=== PATIENT | male | born 1995 | race Caucasian/White ===

== ENCOUNTER 2018-01-02 13:44 | Emergency (ER) | payer BC, SELFPAY ==
[2018-01-02 13:59] VITALS: BP 140/70; PULSE 70; RESP 16; TEMP 36.8; O2SAT 96; BMI 23.5
--- NOTE | 2018-01-02 14:14 | HMH.EDUTC ---
[facility] [place] Disposition Clinical Impression: Dental abscess Disposition: Home, Self-Care Condition on Discharge: Good Instructions: Tooth Abscess Additional Instructions: Follow up with dentist as scheduled Take medication as prescribed Follow up with family doctor in 12-48 hours if no improvement or worsening of symptoms REturn if needed Straight to ER if any medical emergencies or worsening of swelling Prescriptions: Fluticasone Propionate [Flonase 50mcg nasal spray 16gm] 2 spr NS DAILY #1 bottle Ibuprofen [Ibuprofen 600mg Tab] 600 mg PO Q6H PRN #20 tab PRN Reason: Moderate Pain Penicillin V Potassium 500 mg PO Q6H #40 tab Referrals: Adis Huitron MD [Primary Care Provider] - Forms: Work/School Release Time of Disposition: 14:29 Medical Decision Making - Medical Records Medical records reviewed: Yes: I reviewed the patient's medical records. - Edwin Inquiry Pt receiving controlled substance: No Edwin was queried for this patient: No Vital Signs: 01/02/18 13:59 Temperature 98.3 F Temperature Source Temporal Artery Scan Pulse Rate [Right] 70 Respiratory Rate 16 Blood Pressure [Right Arm] 140/70 Blood Pressure Mean [Right Arm] 93 Blood Pressure Source [Right Arm] Automatic Cuff Blood Pressure Position [Right Arm] Sitting 02 Sat by Pulse Oximetry 96 Oxygen Delivery Method Room Air - Lab Data Lab results reviewed: Yes: I reviewed the patient's lab results. [facility] [place] HPI - General Stated complaint: fever glands swollen Time Seen by Provider: 01/02/18 14:15 Mode of Arrival: Ambulatory Source of Information: Patient Limitations: No Limitations Description of Symptoms (Recalled from Triage Doc. by RN): DENTAL PAIN, BODY ACHES HEENT Symptoms (Recalled from RN notes): Yes Resp Symptoms (Recalled from RN notes): No Skin Symptoms (Recalled from RN notes): No MS Symptoms (Recalled from RN notes): No Functional Status (Recalled from RN notes): N - History of Present Illness Provider Complaint: Patient states that he has been achy all over, complaining of sinus drainage Also state that he thinks he may have a dental infection or abcess tooth State that he has been having pain and swelling on left lower jaw area in his back tooth State that he noticed that his jaw looked swollen and he has been having pain - Related Data Previous Rx's Medication Instructions Recorded Fluticasone Propionate [Flonase 2 spr NS DAILY #1 bottle 01/02/18 50mcg nasal spray 16gm] Ibuprofen [Ibuprofen 600mg Tab] 600 mg PO Q6H PRN #20 tab 01/02/18 Penicillin V Potassium 500 mg PO Q6H #40 tab 01/02/18 Allergies Allergy/AdvReac Type Severity Reaction Status Date / Time No Known Allergies Allergy Verified 01/02/18 14:02 - Worker's Comp Is this a Worker's Comp case?: No H History I have reviewed the patient's past medical history: Yes - Social History Smoking Status: Current every day smoker Tobacco Type: smokeless tobacco Alcohol Intake: never - Psychiatric History Expresses thoughts of harming self/others: None Suicide Plan Description: No Plan ROS Obtained: Yes All systems reviewed & no additional complaints - Constitutional Constitutional: Reports body ache - ENT Ears, Nose, Mouth, and Throat: Reports dental pain, Reports nasal congestion, Reports sore throat Physical Exam - General General appearance: alert, in no apparent distress - Expanded ENT Exam Nose exam: Present: sinus tenderness Open Mouth Image: 1 - [place] tooth trying to come in, not enough room gums appear red, swollen inflammed - Respiratory Respiratory exam: Present: normal lung sounds bilaterally. Absent: respiratory distress - Cardiovascular Cardiovascular exam: Present: regular rate, normal rhythm. Absent: JVD - Abdominal Exam Abdominal exam: Present: soft, normal bowel sounds. Absent: distention, tenderness, guarding - Neurological Exam
--- NOTE | 2018-01-02 14:17 | ED_ITS ---
[facility] [place] Disposition Clinical Impression: Dental abscess Disposition: Home, Self-Care Condition on Discharge: Good Instructions: Tooth Abscess Additional Instructions: Follow up with dentist as scheduled Take medication as prescribed Follow up with family doctor in 12-48 hours if no improvement or worsening of symptoms REturn if needed Straight to ER if any medical emergencies or worsening of swelling Prescriptions: Fluticasone Propionate [Flonase 50mcg nasal spray 16gm] 2 spr NS DAILY #1 bottle Ibuprofen [Ibuprofen 600mg Tab] 600 mg PO Q6H PRN #20 tab PRN Reason: Moderate Pain Penicillin V Potassium 500 mg PO Q6H #40 tab Referrals: Adis Huitron MD [Primary Care Provider] - Forms: Work/School Release Time of Disposition: 14:29 Medical Decision Making - Medical Records Medical records reviewed: Yes: I reviewed the patient's medical records. - Edwin Inquiry Pt receiving controlled substance: No Edwin was queried for this patient: No Vital Signs: 01/02/18 13:59 Temperature 98.3 F Temperature Source Temporal Artery Scan Pulse Rate [Right] 70 Respiratory Rate 16 Blood Pressure [Right Arm] 140/70 Blood Pressure Mean [Right Arm] 93 Blood Pressure Source [Right Arm] Automatic Cuff Blood Pressure Position [Right Arm] Sitting 02 Sat by Pulse Oximetry 96 Oxygen Delivery Method Room Air - Lab Data Lab results reviewed: Yes: I reviewed the patient's lab results. [facility] [place] HPI - General Stated complaint: fever glands swollen Time Seen by Provider: 01/02/18 14:15 Mode of Arrival: Ambulatory Source of Information: Patient Limitations: No Limitations Description of Symptoms (Recalled from Triage Doc. by RN): DENTAL PAIN, BODY ACHES HEENT Symptoms (Recalled from RN notes): Yes Resp Symptoms (Recalled from RN notes): No Skin Symptoms (Recalled from RN notes): No MS Symptoms (Recalled from RN notes): No Functional Status (Recalled from RN notes): N - History of Present Illness Provider Complaint: Patient states that he has been achy all over, complaining of sinus drainage Also state that he thinks he may have a dental infection or abcess tooth State that he has been having pain and swelling on left lower jaw area in his back tooth State that he noticed that his jaw looked swollen and he has been having pain - Related Data Previous Rx's Medication Instructions Recorded Fluticasone Propionate [Flonase 2 spr NS DAILY #1 bottle 01/02/18 50mcg nasal spray 16gm] Ibuprofen [Ibuprofen 600mg Tab] 600 mg PO Q6H PRN #20 tab 01/02/18 Penicillin V Potassium 500 mg PO Q6H #40 tab 01/02/18 Allergies Allergy/AdvReac Type Severity Reaction Status Date / Time No Known Allergies Allergy Verified 01/02/18 14:02 - Worker's Comp Is this a Worker's Comp case?: No H History I have reviewed the patient's past medical history: Yes - Social History Smoking Status: Current every day smoker Tobacco Type: smokeless tobacco Alcohol Intake: never - Psychiatric History Expresses thoughts of harming self/others: None Suicide Plan Description: No Plan ROS Obtained: Yes All systems reviewed & no additional complaints - Constitutional Constitutional: Reports body ache - ENT Ears, Nose, Mouth, and Throat: Reports dental pain, Reports nasal congestion, Reports sore throat Physical Exam
[2018-01-02 14:33] VITALS: BP 140/70; PULSE 70; RESP 16; TEMP 36.8
[2018-01-02 14:38] LABS: UTC Influenza A Antigen Negative (Negative); UTC Influenza B Antigen Negative (Negative)
== END 2018-01-02 14:43 | disposition home or self-care (01) ==
PROVIDERS: Emergency Provider Nurse Practitioner; Family Provider Internal Medicine Adolescent Medicine; PCP Internal Medicine Adolescent Medicine
DX: K04.7 Periapical abscess without sinus (principal); F17.290 Nicotine dependence, other tobacco product, uncomplicated
CPT/HCPCS: 87804; 99201

== ENCOUNTER → 2018-11-16 12:58 | Outpatient (CLI) | payer BC, SELFPAY ==
[2018-11-16 14:32] LABS: Basophils % 0.3 % (0.1-2.0); Eosinophils # 0.1 K/mm3 (0.0-0.4); Eosinophils % 1.6 % (0.1-12.0); Hematocrit 50.8 % (42.0-52.0); Lymphocytes # 1.5 K/mm3 (0.7-4.5); Mean Corpuscular HGB Conc 31.4 g/dL (31.8-35.4); Mean Corpuscular Hemoglobin 28.7 pg (27.0-31.2); Mean Corpuscular Volume 91.2 fl (80-94); Mean Platelet Volume 7.3 fl (7.4-10.4); Monocytes # 0.3 K/mm3 (0.1-1.0); Monocytes % 6.4 % (1.7-9.3); Neutrophils # 2.8 K/mm3 (1.8-7.8); Neutrophils % 59.7 % (37.0-80.0); Platelet Count 288 K/mm3 (142-424); Red Blood Count 5.57 M/mm3 (4.60-6.20); Red Cell Distribution Width 12.6 % (11.5-17.5); White Blood Count 4.7 K/mm3 (4.8-10.8)
[2018-11-16 14:56] LABS: Hemoglobin A1C 5.4 % (0.0-7.0)
[2018-11-16 15:32] LABS: Alanine Aminotransferase 48 U/L (12-78); Albumin Level 4.5 gm/dL (3.4-5.0); Albumin/Globulin Ratio 1.4 (1.1-1.8); Alkaline Phosphatase 71 U/L (46-116); Anion Gap 13.5 mEq/L (5-15); Aspartate Amino Transferase 23 U/L (15-37); Bilirubin,Total 0.6 mg/dL (0.2-1.0); Blood Urea Nitrogen 13 mg/dL (7-18); Calcium 10.1 mg/dL (8.5-10.1); Carbon Dioxide 29 mmol/L (21.0-32.0); Chloride 102 mmol/L (98-107); Cholesterol 170 mg/dL (140-200); Creatinine,Serum 0.98 mg/dL (0.70-1.30); Estimated Glomerular Filt Rate 94 ml/min (>60); GFR (African American) 114 ML/MIN (>60); Globulin 3.3 gm/dl (1.3-3.2); Glucose 103 mg/dL (74-106); HDL Cholesterol 43 mg/dL (27-67); LDL Cholesterol 110 mg/dL (0-130); Potassium 4.5 mmoL/L (3.5-5.1); Sodium 140 mmol/L (136-145); Thyroid Stimulating Hormone 3.85 uIU/ml (0.358-3.740); Total Protein,Serum 7.8 gm/dL (6.4-8.2); Triglycerides 85 mg/dL (30-200); VLDL Cholesterol 17 mg/dL (0-40)
[2018-11-18 07:05] LABS: Vitamin B12 609 pg/mL (232-1245)
== END ==
PROVIDERS: PCP Internal Medicine Adolescent Medicine; Visit Provider Internal Medicine Adolescent Medicine
DX: R55 Syncope and collapse (principal); R53.83 Other fatigue; R53.81 Other malaise
CPT/HCPCS: 36415; 80053; 80061; 82607; 82652; 83036; 83735; 84443; 85025

== ENCOUNTER 2020-07-18 00:45 | Emergency (ER) | payer BC, SELFPAY ==
[2020-07-18 01:01] VITALS: BP 150/70; PULSE 92; RESP 16; TEMP 36.8; O2SAT 98; BMI 25.0
--- NOTE | 2020-07-18 01:04 | XR_ITS ---
PROCEDURE: XR ANKLE RT MIN 3V CLINICAL INDICATION: ROLLED ANKLE Posttraumatic pain and swelling COMPARISON: No exams were available for comparison FINDINGS: Soft tissue swelling is present along the lateral malleolar region. No obvious fracture or dislocation. An old full hyperdensity is present along the distal tibia laterally and may be due to a bone island. IMPRESSION: Soft tissue swelling otherwise negative Dictated by: Tobias Arroyo MD 07/18/2020 05:28 Tobias Arroyo MD in [place] 07/18/2020 05:28
--- NOTE | 2020-07-18 01:40 | HMH.EDLOEX ---
ED Disposition Clinical Impression: Ankle sprain and strain Disposition: Home, Self-Care Condition on Discharge: Good Instructions: Sprain Referrals: Adis Huitron MD [Primary Care Provider] - Nita Proctor DPM [Staff Physician] - - Critical Care Critical Care Time: No Attestation: On 07/18/20, the high probability of a clinically significant, sudden or life threatening deterioration of the following system(s) required my full and direct attention, intervention and personal management. The time I documented below is in addition to time spent performing reported procedures but includes the following listed in this critical care notation. Medical Decision Making - Medical Records Medical records reviewed: Yes: I reviewed the patient's medical records. - Edwin Inquiry Pt receiving controlled substance: No Vital Signs: 07/18/20 01:01 Temperature 98.2 F Temperature Source Oral Pulse Rate [Left Brachial] 92 H Respiratory Rate 16 Blood Pressure [Left Arm] 150/70 H Blood Pressure Mean [Left Arm] 96 Blood Pressure Source [Left Arm] Automatic Cuff Blood Pressure Position [Left Arm] Sitting 02 Sat by Pulse Oximetry 98 Oxygen Delivery Method Room Air Orders (Tests/Meds): ORDERS Category Date Time Status Ankle XR -Right minimum 3 Views [XR ankle RT min 3V] Exams 07/18/20 01:04 Taken Stat - Radiology Data #1 Image(s): Ankle Image Reviewed: Yes I reviewed the patient's radiology image Preliminary Findings: No Fracture Seen Lower Extremity Injury HPI - General Chief Complaint: Extremity Injury, Lower Stated Complaint: AO 07/17/20 21:00 injury right ankle Time Seen by Provider: 07/18/20 01:15 Mode of Arrival: Ambulatory Source of Information: Patient, Spouse, Medical Record Limitations: No Limitations Description of Symptoms (Recalled from ER Triage Doc. by RN): PATIENT REPORTS HE WAS TAKING OUT HIS TRASH AND MISSED A STEP WHEN STEPPING OFF HIS PORCH AND ROLLED HIS RIGHT ANKLE. - History of Present Illness HPI Narrative: acute rt ankle injury complaint: ankle injury Onset (ago): hour(s) Injury: Right: ankle Type of Injury: eversion Place: home Severity: moderate Context: walking Associated symptoms: snap/pop sensation, unable to bear weight Other symptoms: none - Related Data Previous Rx's Medication Instructions Recorded Azithromycin [Z-Ehsan 250mg Tab*] 250 mg PO UD DOSE PK #6 tab 08/22/19 predniSONE [Prednisone 5mg Tab 5 mg PO UD DOSE PK 6 Days #21 pack 08/22/19 Dose-Pack] Allergies Allergy/AdvReac Type Severity Reaction Status Date / Time No Known Allergies Allergy Verified 01/02/18 14:02 [facility] History - Hepatitis A Screen Drug use history?: No High risk sexual behaviors?: No History of sexually transmitted infection?: No Currently employed?: No Childcare worker?: No Do you have indoor plumbing?: Yes Do you have electricity?: Yes Attestation statement:: This patient has been screened for Hepatitis A risk factors. I have reviewed the patient's past medical history: Yes Fractures: Yes (COLLAR BONE) - Social History Smoking Status: Current every day smoker Tobacco Type: smokeless tobacco Alcohol Intake: never Occupational Status: other ROS Obtained: Yes All systems reviewed & no additional complaints - Constitutional Constitutional: Denies fever(s) - Eyes Eyes: Denies change in vision - ENT Ears, Nose, Mouth, and Throat: Denies sore throat - Cardiovascular Cardiovascular: Denies chest pain - Respiratory Respiratory: No cough - Gastrointestinal Gastrointestingal: Denies: abdominal pain - Genitourinary Male Genitourinary: Denies flank pain - Musculoskeletal Musculoskeletal: Reports as per HPI, Reports joint pain, Reports joint swelling, Reports limited range of motion - Integumentary/Breasts Skin/Breast: Denies rash - Neurologic Neurologic: Denies focal weakness, Denies seizure-like activity Physical Exam
[2020-07-18 01:53] VITALS: BP 127/91; PULSE 73; RESP 15; TEMP 36.6; O2SAT 99
== END 2020-07-18 01:55 | disposition home or self-care (01) ==
PROVIDERS: Emergency Provider Emergency Medicine; PCP Internal Medicine Adolescent Medicine
DX: S93.401A Sprain of unspecified ligament of right ankle, initial encounter (principal); W10.8XXA Fall (on) (from) other stairs and steps, initial encounter; Y92.019 Unspecified place in single-family (private) house as the place of occurrence of the external cause; F17.290 Nicotine dependence, other tobacco product, uncomplicated
CPT/HCPCS: 73610; 99282

== ENCOUNTER 2020-10-16 09:52 | Emergency (ER) | payer BC, SELFPAY ==
[2020-10-16 09:58] VITALS: BP 140/90; PULSE 77; RESP 17; TEMP 36.9; O2SAT 99; BMI 25.8
--- NOTE | 2020-10-16 10:01 | HMH.EDUTC ---
[facility] [place] Clinical Impression: Heartburn Pneumonia Qualifiers: Pneumonia type: due to unspecified organism Laterality: right Lung location: upper lobe of lung Qualified Code(s): J18.9 - Pneumonia, unspecified organism Disposition: Home, Self-Care Condition on Discharge: Good Instructions: DI for Pneumonia -- Adult Additional Instructions: Follow up with Dr Huitron if not improving You have been tested for COVID19. Please isolate yourself as if you are positive until test results received. Prescriptions: Famotidine/Ca Carb/Mag Hydrox [Pepcid Complete Tablet Chew] 1 each PO BID 10 Days #20 tab.chew [facility] predniSONE [Prednisone 20mg Tab] 20 mg PO BID 5 Days #10 tab Transmission Status: Pending to [facility] Azithromycin [Z-Ehsan 250mg Tab*] 250 mg PO UD DOSE PK #6 tab Transmission Status: Pending to [facility] Referrals: Adis Huitron MD [Primary Care Provider] - Time of Disposition: 11:00 Medical Decision Making - Edwin Inquiry Pt receiving controlled substance: No Vital Signs: 10/16/20 09:58 Temperature 98.4 F Temperature Source Oral Pulse Rate [Radial] 77 Respiratory Rate 17 Blood Pressure [Right Arm] 140/90 Blood Pressure Mean [Right Arm] 106 Blood Pressure Source [Right Arm] Automatic Cuff Blood Pressure Position [Right Arm] Sitting 02 Sat by Pulse Oximetry 99 Oxygen Delivery Method Room Air Orders (Tests/Meds): ORDERS Category Date Time Status Chest XR 2 view (NOT portable) [XR chest 2V] Stat Exams 10/16/20 10:10 Taken - Radiology Data #1 Image(s): Chest Image Reviewed: Yes I reviewed the patient's radiology image Preliminary Findings: Normal/NAD, No Infiltrates Seen - ECG Data Tracing #1 I reviewed this ECG and interpreted as documented below: NSR with sinus arrhythmia; no ST elevation ECG initial impression date: 10/16/20 ECG initial impression time: 10:52 Normal Sinus Rhythm: Yes [facility] [place] - General Stated complaint: upper respitory pain, achy, Time Seen by Provider: 10/16/20 10:01 Mode of Arrival: Ambulatory Source of Information: Patient Limitations: No Limitations Description of Symptoms (Recalled from Triage Doc. by RN): consistent heart burn since last night with body aches. HEENT Symptoms (Recalled from RN notes): Yes Resp Symptoms (Recalled from RN notes): No Skin Symptoms (Recalled from RN notes): No MS Symptoms (Recalled from RN notes): No Functional Status (Recalled from RN notes): wnl - History of Present Illness Provider Complaint: Patient woke up yesterday with heartburn, but states that is is worse than any heartburn he has had before. No relief with Tums, etc. Has some upper back pain, body aches. No fever. Cannot get comfortable. Chest is sore with movement, when he lays on it. Minimal cough. Denies ear pain, sore throat, headache. Has not had much appetite but denies loss of taste or smell. No vomiting or diarrhea. Onset (ago): day(s) (1) Location: chest Radiation: non-radiation Quality: burning Relieving factors: none Exacerbating factors: none Associated symptoms: malaise Treatments prior to arrival: other (Tums) - Related Data Previous Rx's Medication Instructions Recorded meloxicam 7.5 mg tablet 7.5 mg PO ONCE #30 tab 07/19/20 methylprednisolone 4 mg tablets in See Rx Instructions PO PER PKG DIR 07/19/20 a dose pack #21 tab Azithromycin [Z-Ehsan 250mg Tab*] 250 mg PO UD DOSE PK #6 tab 10/16/20 Famotidine/Ca Carb/Mag Hydrox 1 each PO BID 10 Days #20 tab.chew 10/16/20 [Pepcid Complete Tablet Chew] predniSONE [Prednisone 20mg 20 mg PO BID 5 Days #10 tab 10/16/20 Tab] Allergies Allergy/AdvReac Type Severity Reaction Status Date / Time No Known Allergies Allergy Verified 07/19/20 08:18 - Worker's Comp Is this a Worker's Comp case?: No H History - Hepatitis A Screen Drug use history?: No High risk sexual behaviors?:
--- NOTE | 2020-10-16 10:10 | XR_ITS ---
PROCEDURE: XR CHEST 2V Referring Doctor: Jarad Sylvia Patient Age:24Y CLINICAL HISTORY: crackles crackles at lung bases patient has body aches. Heartburn 2 days. Not feeling well. Nonsmoker COMPARISON: [facility] from 01/21/2017 FINDINGS: PA and lateral chest performed. The lungs appear well expanded and clear with nothing definitely acute. No pneumonia Heart is normal in size. Alicia and mediastinal structures satisfactory. Chest wall unremarkable. No pneumothorax; no pleural effusions. Normal pulmonary vascularity. Ribs intact unremarkable, T-spine unremarkable Old 2017 fracture distal left clavicle with notable osseous deformity here. . IMPRESSION: No acute findings. Lungs clear Old healed distal left clavicle fracture with deformity Dictated by: Alfredo Mcpherson MD 10/16/2020 11:20 Alfredo Mcpherson MD in [place] 10/16/2020 11:20
--- NOTE | 2020-10-16 10:49 | ECG_ITS ---
APPROVED REPORT Exam: Resting ECG HR:83 bpm ECG Measurements Heart Rate 83 AXES NC 122 P 83 QRSd 90 QRS 92 QT 346 T 74 QTc 406 Conclusion Normal sinus rhythm with sinus arrhythmia Rightward axis Nonspecific ST abnormality Abnormal ECG Electronically signed by : Adis Huitron, 10/16/2020 20:59:16
[2020-10-16 11:10] VITALS: BP 140/90; PULSE 77; RESP 17; TEMP 36.9; O2SAT 99
== END 2020-10-16 11:11 | disposition home or self-care (01) ==
PROVIDERS: Emergency Provider Physician Assistant; PCP Internal Medicine Adolescent Medicine
DX: J18.9 Pneumonia, unspecified organism (principal); Z20.828 Contact with and (suspected) exposure to other viral communicable diseases; F17.210 Nicotine dependence, cigarettes, uncomplicated; R12 Heartburn
CPT/HCPCS: 71046; 93005; 99202; U0003

== ENCOUNTER 2021-04-16 14:17 | Emergency (ER) | payer BC, SELFPAY ==
[2021-04-16 14:50] VITALS: BP 123/80; PULSE 68; RESP 19; TEMP 37.2; O2SAT 98; BMI 26.7
[2021-04-16 15:14] LABS: UTC Strep Screen (Rapid) Negative (Negative)
--- NOTE | 2021-04-16 15:19 | HMH.EDUTC ---
[facility] [place] Disposition Clinical Impression: URI (upper respiratory infection) Qualifiers: URI type: unspecified URI Qualified Code(s): J06.9 - Acute upper respiratory infection, unspecified Disposition: Home, Self-Care Condition on Discharge: Good Instructions: Sore Throat, DI for Fever (Symptom) -- Adult, DI for COVID-19 (Suspected or Confirmed ), Coronavirus Disease 2019, Preventing the Spread of Coronavirus Discharge Instructions Additional Instructions: *Monitor Temp, Over the counter Motrin or Tylenol as directed/as needed Tylenol every 4 hours and Motrin every 6 hours (as long as your family doctor has told you that you can take it) for fever or pain. and straight to ER if unable to lower temp less than 101.0 after medication given *Warm salt water gargles may help to soothe the throat *Throat Lozenges *Warm fluids like tea with honey may help to soothe the throat *Sleep elevated *Humidifier/Vaporizer Your throat swab was sent for culture. Those results are typically sent to your primary care. Be sure to follow up in 2-3 days with your family doctor/primary care physician if no improvement so they can review those result and treat if necessary. If you don?t have a primary care doctor, I recommend you get one but in the mean time, you will have to return to a walk in clinic Follow up IMMEDIATELY for new or worsening symptoms or no Noticeable improvement over the next 48-72 hours. 911 for difficulty breathing or swallowing You were tested for today for COVID19 your test result should be back in the next 24-48 hours, you may call to the [facility] [[email or web address]] to see if your test results are back in the next 48 hours [phone] [facility] [[email or web address]] hours are 9am-9pm You was given a handout with instructions for Self Quarantine and Self isolation for while you wait on test results and what to do if they are positive If you are positive the Health Dept will be contacting you also Prescriptions: methylPREDNISolone [Medrol 4mg tab] 4 mg PO DIRECTED #21 tab [facility] Azithromycin [Z-Ehsan 250mg Tab] 250 mg PO DIRECTED #6 tab Transmission Status: [facility] Referrals: Adis Huitron MD [Primary Care Provider] - As needed Forms: Work/School Release Time of Disposition: 15:29 Medical Decision Making - Edwin Inquiry Pt receiving controlled substance: No Edwin was queried for this patient: No Vital Signs: 04/16/21 14:50 Temperature 98.9 F Temperature Source Oral Pulse Rate [Right Brachial] 68 Respiratory Rate 19 Blood Pressure [Right Arm] 123/80 Blood Pressure Mean [Right Arm] 94 Blood Pressure Source [Right Arm] Automatic Cuff Blood Pressure Position [Right Arm] Sitting 02 Sat by Pulse Oximetry 98 Oxygen Delivery Method Room Air - Lab Data Lab results reviewed: Yes: I reviewed the patient's lab results. Lab Results 04/16/21 14:48: Strep Scn Rapid Clinic Negative Orders (Tests/Meds): ORDERS Category Date Time Status Covid-19 Nasal PCR ([facility]) Routine Lab 04/16/21 14:50 Received Strep Screen Confirmation Stat Micro 04/16/21 14:48 Received [facility] UTC HPI - General Stated complaint: aching, sore throat, weakness Time Seen by Provider: 04/16/21 15:20 Mode of Arrival: Ambulatory Source of Information: Patient Limitations: No Limitations Description of Symptoms (Recalled from Triage Doc. by RN): PATIENT C/O BODY ACHES, SOA, AND HOT FLASHES SINCE YESTERDAY. RECENTLY EXPOSED TO COVID HEENT Symptoms (Recalled from RN notes): No Resp Symptoms (Recalled from RN notes): No Skin Symptoms (Recalled from RN notes): No MS Symptoms (Recalled from RN notes): No Functional Status (Recalled from RN notes): WNL - History of Present Illness Provider Complaint: Patient states that has been around several people at work that has tested positive for COVID but not very close to them State that last night he started having sore throat and felt like he had a fever State that he w
[2021-04-16 15:28] VITALS: BP 123/80; PULSE 68; RESP 19; TEMP 37.2; O2SAT 98
--- NOTE | 2021-04-16 20:08 | PC.NURSE ---
PT NOTIFIED OF POSITIVE COVID RESULT
== END 2021-04-16 15:30 | disposition home or self-care (01) ==
PROVIDERS: Emergency Provider Nurse Practitioner; PCP Internal Medicine Adolescent Medicine
DX: U07.1 COVID-19 (principal); J06.9 Acute upper respiratory infection, unspecified; F17.210 Nicotine dependence, cigarettes, uncomplicated
CPT/HCPCS: 87880; 99202; G0463; U0003

== ENCOUNTER 2021-07-25 11:31 | Emergency (ER) | payer BC, SELFPAY ==
[2021-07-25 11:32] VITALS: BP 139/73; PULSE 64; RESP 16; TEMP 36.4; O2SAT 99; BMI 26.6
[2021-07-25 12:54] LABS: UTC Strep Screen (Rapid) Positive (Negative)
--- NOTE | 2021-07-25 13:13 | HMH.EDUTC ---
[facility] [place] Clinical Impression: Strep throat Disposition: Home, Self-Care Condition on Discharge: Good Instructions: Strep Throat, DI for Strep Throat Additional Instructions: Drink plenty of fluids. Take tylenol or ibuprofen for pain or fever. Take the medications as directed. Follow up with your regular doctor. GO TO THE ER FOR ANY WORSENING SYMPTOMS Throw your tooth brush away and get a new one. Prescriptions: Amoxicillin [Amoxicillin 500mg Tab] 500 mg PO TID 10 Days #30 tab Transmission Status: Received by [id number] predniSONE [Deltasone 10mg tablet] 10 mg PO BID 3 Days #6 tab Transmission Status: Received by [id number] Referrals: Adis Huitron MD [Primary Care Provider] - Forms: Work/School Release Time of Disposition: 13:16 Medical Decision Making - Medical Records Medical records reviewed: No: I reviewed the patient's medical records. - Edwin Inquiry Pt receiving controlled substance: No Vital Signs: 07/25/21 11:32 07/25/21 13:24 Temperature 97.5 F L 97.5 F L Temperature Source Oral Oral Pulse Rate 64 Pulse Rate [Apical] 64 Respiratory Rate 16 16 Blood Pressure 139/73 Blood Pressure [Right Arm] 139/73 Blood Pressure Mean [Right Arm] 95 Blood Pressure Source Automatic Cuff Blood Pressure Source [Right Arm] Automatic Cuff Blood Pressure Position Sitting Blood Pressure Position [Right Arm] Sitting 02 Sat by Pulse Oximetry 99 Oxygen Delivery Method Room Air Room Air - Lab Data Lab results reviewed: Yes: I reviewed the patient's lab results. Lab Results 07/25/21 12:47: Strep Scn Rapid Clinic Positive A [facility] [place] - General Stated complaint: sore throat Time Seen by Provider: 07/25/21 13:13 - History of Present Illness Provider Complaint: He c/o sore throat for the past 3 days. He has had chilling but no fever. He works at [employer] and he gets tested for covid-19 twice per week. His test have all been negative and his last test was 2 days ago. - Related Data Previous Rx's Medication Instructions Recorded Azithromycin [Z-Ehsan 250mg Tab] 250 mg PO DIRECTED #6 tab 04/16/21 methylPREDNISolone [Medrol 4mg 4 mg PO DIRECTED #21 tab 04/16/21 tab] Amoxicillin [Amoxicillin 500mg Tab] 500 mg PO TID 10 Days #30 tab 07/25/21 predniSONE [Deltasone 10mg tablet] 10 mg PO BID 3 Days #6 tab 07/25/21 Allergies Allergy/AdvReac Type Severity Reaction Status Date / Time No Known Allergies Allergy Verified 07/19/20 08:18 [facility] History - Hepatitis A Screen Attestation statement:: This patient has been screened for Hepatitis A risk factors. I have reviewed the patient's past medical history: Yes Other Surgeries: Yes: No Previous Surgery Fractures: Yes (COLLAR BONE) - Social History Smoking Status: Smoker, status unknown Tobacco Type: cigarettes # Packs/Day (cigarettes): 0 Alcohol Intake: never Occupational Status: other ROS Obtained: Yes All systems reviewed & no additional complaints - Constitutional Constitutional: Reports fever(s), Reports poor appetite, Reports malaise - Eyes Eyes: Denies eye discharge - ENT Ears, Nose, Mouth, and Throat: Reports as per HPI - Cardiovascular Cardiovascular: Denies chest pain - Respiratory Respiratory: Denies chest congestion, Reports cough, Denies dyspnea, Denies stridor, Denies wheezing - Gastrointestinal Gastrointestingal: Reports: nausea. Denies: abdominal pain, diarrhea, vomiting - Musculoskeletal Musculoskeletal: Denies joint pain - Integumentary/Breasts Skin/Breast: Denies rash Physical Exam - General General appearance: alert, in no apparent distress - Head Head exam: atraumatic, normocephalic, normal inspection - Eye Eye exam: Present: normal appearance, PERRL, EOMI - ENT ENT exam: Present: mucous membranes moist, normal external ear exam - Expanded ENT Exam TM/Canal exam: Bilateral TM: erythema, bulging Mouth exam: Prese
[2021-07-25 13:24] VITALS: BP 139/73; PULSE 64; RESP 16; TEMP 36.4; O2SAT 99
== END 2021-07-25 13:25 | disposition home or self-care (01) ==
PROVIDERS: Emergency Provider Nurse Practitioner Family; PCP Internal Medicine Adolescent Medicine
DX: J02.0 Streptococcal pharyngitis (principal)
CPT/HCPCS: 87880; 99202; G0463

== ENCOUNTER 2021-10-27 19:54 | Emergency (ER) | payer BC, SELFPAY ==
[2021-10-27 20:00] VITALS: BP 147/88; PULSE 91; RESP 18; TEMP 38.3; O2SAT 98; BMI 28.4
[2021-10-27 20:22] LABS: UTC Influenza A Antigen Negative (Negative); UTC Influenza B Antigen Negative (Negative); UTC Strep Screen (Rapid) Positive (Negative)
[2021-10-27 20:29] VITALS: BP 147/88; PULSE 91; RESP 18; TEMP 36.9; O2SAT 98
--- NOTE | 2021-10-27 20:30 | HMH.EDUTC ---
[facility] [place] Disposition Clinical Impression: Strep throat Disposition: Home, Self-Care Condition on Discharge: Good Instructions: Strep Throat, DI for Strep Throat, Amoxicillin Additional Instructions: *Monitor Temp, Over the counter Motrin or Tylenol as directed/as needed Tylenol every 4 hours and Motrin every 6 hours (as long as your family doctor has told you that you can take it) for fever or pain. and straight to ER if unable to lower temp less than 101.0 after medication given *Warm salt water gargles may help to soothe the throat *Throat Lozenges *Warm fluids like tea with honey may help to soothe the throat *Sleep elevated *Humidifier/Vaporizer *If you did not take Penicillin shot or was unable to, start taking antibiotic immediately and make sure that you take it for the FULL length of time although you should start to feel better in 24-48 hours *change toothbrush and toothpaste 24-48 hours after starting to take antibiotics so you do not reinfect yourself Monitor Temp. Tylenol and/or Ibuprofen as needed. ER if fever is no less than 101 despite alternating Tylenol and Ibuprofen * Encourage fluids, water, Gatorade, powerade, pedialyte if /toddler/or child *Cold fluids, popsicles and ice cream may feel good on his throat Follow up IMMEDIATELY for new or worsening symptoms or no Noticeable improvement over the next 48-72 hours. 911 for difficulty breathing or swallowing Prescriptions: Amoxicillin [Amoxicillin 875MG Tab] 875 mg PO Q12H #20 tab Transmission Status: Received by [id number] predniSONE [Prednisone 20mg Tab] 20 mg PO BID 5 Days #10 tab Transmission Status: Received by [id number] Referrals: Adis Huitron MD [Primary Care Provider] - As needed Forms: Work/School Release Time of Disposition: 20:41 Medical Decision Making - Edwin Inquiry Pt receiving controlled substance: No Edwin was queried for this patient: No Vital Signs: 10/27/21 20:00 10/27/21 20:29 Temperature 101.0 F H 101.0 F H Temperature Source Oral Pulse Rate 91 H Pulse Rate [Right Brachial] 91 H Respiratory Rate 18 18 Blood Pressure 147/88 H Blood Pressure [Right Arm] 147/88 H Blood Pressure Mean [Right Arm] 107 Blood Pressure Source [Right Arm] Automatic Cuff Blood Pressure Position [Right Arm] Sitting 02 Sat by Pulse Oximetry 98 Oxygen Delivery Method Room Air - Lab Data Lab results reviewed: Yes: I reviewed the patient's lab results. Lab Results 10/27/21 19:56: Influenza Type A Ag Negative, Influenza Type B Ag Negative 10/27/21 19:56: Strep Scn Rapid Clinic Positive A Orders (Tests/Meds): ED MEDICATIONS Discontinued Medications Generic Name Dose Route Start Last Admin Trade Name Toni PRN Reason Stop Dose Admin Amoxicillin 500 mg 10/27/21 20:39 10/27/21 20:41 Amoxicillin 500mg Capsule PO 10/27/21 20:40 500 mg ONCE ONE Administration Ibuprofen 800 mg 10/27/21 20:33 10/27/21 20:34 Ibuprofen 400 Mg Tablet PO 10/27/21 20:34 800 mg ONCE ONE Administration ORDERS Category Date Time Status Covid-19 Nasal PCR ([facility]) Routine Lab 10/27/21 20:02 Received [facility] [place] HPI - General Stated complaint: sore throat,HOOD,Body Aches Time Seen by Provider: 10/27/21 20:30 Mode of Arrival: Ambulatory Source of Information: Patient Limitations: No Limitations Description of Symptoms (Recalled from Triage Doc. by RN): PATIENT C/O SORE THROAT, BODY ACHES, FEVER, AND PRODUCTIVE COUGH SINCE YESTERDAY HEENT Symptoms (Recalled from RN notes): Yes Resp Symptoms (Recalled from RN notes): Yes Skin Symptoms (Recalled from RN notes): No MS Symptoms (Recalled from RN notes): No Functional Status (Recalled from RN notes): WNL - History of Present Illness Provider Complaint: Patient state that he has been having sore throat, cough, body aches, chills and fever States that he over all does not feel well so he came in to get checked State that he feels like he may have st
--- NOTE | 2021-10-28 14:34 | PC.NURSE ---
PATIENT NOTIFIED OF POSITIVE COVID TEST AT THIS TIME
== END 2021-10-27 20:46 | disposition home or self-care (01) ==
PROVIDERS: Emergency Provider Nurse Practitioner; PCP Internal Medicine Adolescent Medicine
DX: J02.0 Streptococcal pharyngitis (principal); U07.1 COVID-19
CPT/HCPCS: 87804; 87880; 99203; C9803; G0463; U0003; U0005

== ENCOUNTER 2022-05-02 15:48 | Emergency (ER) | payer BC, SELFPAY ==
[2022-05-02 16:00] VITALS: BP 143/83; PULSE 68; RESP 18; TEMP 36.8; O2SAT 98; BMI 26.4
[2022-05-02 16:12] LABS: UTC Strep Screen (Rapid) Positive (Negative)
--- NOTE | 2022-05-02 16:27 | HMH.EDUTC ---
[facility] [place] Impression: Strep throat Disposition: Home, Self-Care Condition on Discharge: Good Instructions: DI for Strep Throat, Strep Throat, Amoxicillin Additional Instructions: *Monitor Temp, Over the counter Motrin or Tylenol as directed/as needed Tylenol every 4 hours and Motrin every 6 hours (as long as your family doctor has told you that you can take it) for fever or pain. and straight to ER if unable to lower temp less than 101.0 after medication given *Warm salt water gargles may help to soothe the throat *Throat Lozenges *Warm fluids like tea with honey may help to soothe the throat *Sleep elevated *Humidifier/Vaporizer *If you did not take Penicillin shot or was unable to, start taking antibiotic immediately and make sure that you take it for the FULL length of time although you should start to feel better in 24-48 hours *change toothbrush and toothpaste 24-48 hours after starting to take antibiotics so you do not reinfect yourself Monitor Temp. Tylenol and/or Ibuprofen as needed. ER if fever is no less than 101 despite alternating Tylenol and Ibuprofen * Encourage fluids, water, Gatorade, powerade, pedialyte if /toddler/or child *Cold fluids, popsicles and ice cream may feel good on his throat Follow up IMMEDIATELY for new or worsening symptoms or no Noticeable improvement over the next 48-72 hours. 911 for difficulty breathing or swallowing Prescriptions: Amoxicillin [Amoxicillin 875MG Tab] 875 mg PO Q12H #20 tab Transmission Status: Pending to [id number] predniSONE [Prednisone 20mg Tab] 20 mg PO BID #10 tab Transmission Status: Pending to [id number] Referrals: Adis Huitron MD [Primary Care Provider] - As needed Luis Armando Vaz MD [Physician] - Stanley Doan MD [Physician] - Forms: Work/School Release Time of Disposition: 16:34 Medical Decision Making - Edwin Inquiry Pt receiving controlled substance: No Edwin was queried for this patient: No Vital Signs: 05/02/22 16:00 Temperature 98.2 F Temperature Source Oral Pulse Rate [Right Brachial] 68 Respiratory Rate 18 Blood Pressure [Right Arm] 143/83 H Blood Pressure Mean [Right Arm] 103 Blood Pressure Source [Right Arm] Automatic Cuff Blood Pressure Position [Right Arm] Sitting 02 Sat by Pulse Oximetry 98 Oxygen Delivery Method Room Air - Lab Data Lab results reviewed: Yes: I reviewed the patient's lab results. Lab Results 05/02/22 16:04: Strep Scn Rapid Clinic Positive [place] [facility] [place] - General Stated complaint: sore throat and cough Time Seen by Provider: 05/02/22 16:27 Mode of Arrival: Ambulatory Source of Information: Patient Limitations: No Limitations Description of Symptoms (Recalled from Triage Doc. by RN): PATIENT C/O SORE THROAT, BODY ACHES, AND HOT FLASHES THAT STARTED THIS MORNING HEENT Symptoms (Recalled from RN notes): Yes Resp Symptoms (Recalled from RN notes): No Skin Symptoms (Recalled from RN notes): No MS Symptoms (Recalled from RN notes): No Functional Status (Recalled from RN notes): WNL - Related Data Previous Rx's Medication Instructions Recorded Amoxicillin [Amoxicillin 875MG 875 mg PO Q12H #20 tab 05/02/22 Tab] predniSONE [Prednisone 20mg 20 mg PO BID #10 tab 05/02/22 Tab] Allergies Allergy/AdvReac Type Severity Reaction Status Date / Time No Known Allergies Allergy Verified 07/19/20 08:18 - Worker's Comp Is this a Worker's Comp case?: No [facility] History - Hepatitis A Screen Attestation statement:: This patient has been screened for Hepatitis A risk factors. I have reviewed the patient's past medical history: Yes Other Surgeries: Yes: No Previous Surgery Fractures: Yes (COLLAR BONE) - Social History Smoking Status: Never smoker Tobacco Type: smokeless tobacco # Packs/Day (cigarettes): 0 Alcohol Intake: never Occupational Status: other ROS Obtained: Yes All systems reviewed & no additional complain
[2022-05-02 16:29] VITALS: BP 143/83; PULSE 68; RESP 18; TEMP 36.8; O2SAT 98
== END 2022-05-02 16:42 | disposition home or self-care (01) ==
PROVIDERS: Emergency Provider Nurse Practitioner; PCP Internal Medicine Adolescent Medicine
DX: J02.0 Streptococcal pharyngitis (principal)
CPT/HCPCS: 87880; 99212; G0463

== ENCOUNTER 2022-05-13 19:23 | Emergency (ER) | payer BC, SELFPAY ==
[2022-05-13 19:40] VITALS: BP 120/84; PULSE 88; RESP 19; TEMP 37.2; O2SAT 98; BMI 27.6
--- NOTE | 2022-05-13 19:59 | HMH.EDUTC ---
[facility] [place] Clinical Impression: Strep throat Disposition: Home, Self-Care Condition on Discharge: Good Instructions: Strep Throat, DI for Strep Throat, DI for Cough -- Adult, DI for COVID-19 (Suspected or Confirmed ), Preventing the Spread of Coronavirus Discharge Instructions Additional Instructions: ? Start antibiotic today. Be sure to complete entire prescription even if feeling better ? Monitor temp. Tylenol every 4 hours as needed and / or ibuprofen every 6 hours as needed ( As long as your primary care physician has told you that it ok to take both. For fever/aches/pains ER if no less than 101 despite Tylenol or Motrin ? Humidifier/vaporizer or hot steamy shower ? Inhaler every 4-6 hours as needed like we discussed. If unsure how to use it, ask pharmacist to demonstrate how. Should help open airways and improve cough, wheezing, and shortness of breath *Start steroid today. Helps with inflammation therefore, cough and wheezing. Follow directions on the package. Reviewed side effects. Patient reports taking them before. Follow up IMMEDIATELY for new or worsening of symptoms OR no noticeable improvement over the next 48-72 hours. 911 immediately for any life threatening symptoms such as chest pain or difficulty breathing You were tested for today for COVID19 your test result should be back in the next 24-48 hours, you may check your results on the [facility] My Health Portal Make sure to take your Vitamins Vit. C Vit D and Zinc if you can take them Prescriptions: Albuterol Sulfate [Proventil-HFA 90mcg/puff Inh] 1 - 2 puffs IH Q6HP PRN #1 each PRN Reason: Shortness Of Breath Transmission Status: Received by [id number] methylPREDNISolone [Medrol 4mg tab] 4 mg PO DIRECTED #21 tab Transmission Status: Received by [id number] Azithromycin [Z-Ehsan 250mg Tab] 250 mg PO DIRECTED #6 tab Transmission Status: Received by [id number] Referrals: Adis Huirton MD [Primary Care Provider] - As needed Forms: Work/School Release Medical Decision Making - Edwin Inquiry Pt receiving controlled substance: No Edwin was queried for this patient: No Vital Signs: 05/13/22 19:40 05/13/22 20:25 Temperature 98.9 F 98.9 F Temperature Source Oral Pulse Rate 88 Pulse Rate [Left Brachial] 88 Respiratory Rate 19 19 Blood Pressure 120/84 Blood Pressure [Left Arm] 120/84 Blood Pressure Mean [Left Arm] 96 Blood Pressure Source [Left Arm] Automatic Cuff Blood Pressure Position [Left Arm] Sitting 02 Sat by Pulse Oximetry 98 Oxygen Delivery Method Room Air - Lab Data Lab results reviewed: Yes: I reviewed the patient's lab results. Lab Results 05/13/22 19:50: Strep Scn Rapid Clinic Positive A Orders (Tests/Meds): ED MEDICATIONS Discontinued Medications Generic Name Dose Route Start Last Admin Trade Name Toni PRN Reason Stop Dose Admin Azithromycin 500 mg 05/13/22 20:05 05/13/22 20:23 Azithromycin 250mg Tablet PO 05/13/22 20:06 500 mg ONCE ONE Administration Methylprednisolone Sodium Succinate 125 mg 05/13/22 20:05 05/13/22 20:25 Methylprednisolone Sod Succ 125mg Vial IM 05/13/22 20:06 125 mg ONCE ONE Administration ORDERS Category Date Time Status Full Resp Panel w/COVID ([facility]) Routine Lab 05/13/22 19:40 Received [facility] [place]PI - General Stated complaint: Chills, Aches, sore throat, soa Time Seen by Provider: 05/13/22 19:59 Mode of Arrival: Ambulatory Source of Information: Patient Limitations: No Limitations Description of Symptoms (Recalled from Triage Doc. by RN): PATIENT C/O BODY ACHES, SOA, AND CHILLS X 2 DAYS HEENT Symptoms (Recalled from RN notes): No Resp Symptoms (Recalled from RN notes): Yes Skin Symptoms (Recalled from RN notes): No MS Symptoms (Recalled from RN notes): No Functional Status (Recalled from RN notes): WNL - History of Present Illness Provider Complaint: Patient states that he was seen and treated for strep thr
[2022-05-13 20:00] LABS: Adenovirus,PCR Not Detected (NotDetected); Bordetella Pertussis Not Detected (NotDetected); Chlamydophila Pneumoniae, PCR Not Detected (NotDetected); Coronavirus 19, PCR Not Detected (NotDetected); Coronavirus 229E Not Detected (NotDetected); Coronavirus NL63 Not Detected (NotDetected); Coronavirus OC43 Not Detected (NotDetected); Coronovirus HKU1,PCR Not Detected (NotDetected); Human Metapneumovirus Not Detected (NotDetected); Influenza A, PCR Not Detected (NotDetected); Influenza AH1, 2009 Not Detected (NotDetected); Influenza AH1, PCR Not Detected (NotDetected); Influenza AH3,PCR Not Detected (NotDetected); Influenza B, PCR Not Detected (NotDetected); Mycoplasma Pneumoniae, PCR Not Detected (NotDetected); Parainfluenza 1, PCR Not Detected (NotDetected); Parainfluenza 2, PCR Not Detected (NotDetected); Parainfluenza 3, PCR Not Detected (NotDetected); Parainfluenza 4, PCR Not Detected (NotDetected); Respiratory Syncytial Virus Not Detected (NotDetected); Rhinovirus/Enterovirus Not Detected (NotDetected)
[2022-05-13 20:07] LABS: UTC Strep Screen (Rapid) Positive (Negative)
[2022-05-13 20:25] VITALS: BP 120/84; PULSE 88; RESP 19; TEMP 37.2; O2SAT 98
== END 2022-05-13 20:35 | disposition home or self-care (01) ==
PROVIDERS: Emergency Provider Nurse Practitioner; PCP Internal Medicine Adolescent Medicine
DX: J02.0 Streptococcal pharyngitis (principal)
CPT/HCPCS: 87581; 87632; 87798; 87880; 96372; 99212; C9803; G0463; U0003; U0005

== ENCOUNTER 2022-10-17 13:08 | Emergency (ER) | payer BC, SELFPAY ==
[2022-10-17 13:10] VITALS: BP 121/93; PULSE 86; RESP 16; TEMP 36.8; O2SAT 100; BMI 27.3
[2022-10-17 13:27] VITALS: BP 121/93; PULSE 86; RESP 16; TEMP 36.8; O2SAT 100
--- NOTE | 2022-10-17 13:28 | EXP.UTC ---
Discharge Plan Disposition Patient Disposition: Home, Self-Care Condition: Good Prescriptions Prescriptions: New ibuprofen 600 mg tablet 600 mg PO Q6HP PRN (Reason: Moderate Pain) Qty: 20 0RF methylprednisolone [Medrol (Ehsan)] 4 mg tablets,dose pack See Rx Instructions .Route .COMPLEX 6 Days Qty: 21 0RF Rx Instructions: taper pack; cyclobenzaprine 10 mg tablet 10 mg PO TID PRN (Reason: muscle spasm) Qty: 15 0RF No Action azithromycin 250 MG tablet 250 mg PO DIRECTED Qty: 6 0RF Rx Instructions: Take two (2) tablets on day #1, then one (1) tablet day #2 thru #5 methylprednisolone 4 MG tablet 4 mg PO DIRECTED Qty: 21 0RF Rx Instructions: Take as directed on package instructions albuterol sulfate 200 PUFF HFA aerosol inhaler 1 - 2 puffs IH Q6HP PRN (Reason: Shortness Of Breath) Qty: 1 0RF Referrals Follow up/Referrals: Adis Huitron MD [Primary Care Provider] - See instructions Activity Restrictions/Add. Instructions Additional Instructions/Restrictions: *Ibuprofen heavenly 6 hours with meal as needed for pain/inflammation *Not additional anti-inflammatory like motrin, aleve, advil with the above amount of ibuprofen. You can still take Tylenol every 4 hours as needed if you need something else for pain *Ice 20 minutes every 2 hours for the first 48 hours after the initial injury followed by moist heat every 20 minutes 3-4 times a day to affected area *Muscle relaxer every 8 hours as needed for muscle spasms but remember, it WILL cause drowsiness You cannot take it and drive, operate machinery or care for small children. *Keep this area active, no movement leads to more stiffness, However take it easy and avoid heavy lifting pushing or pulling *Follow up with you family doctor if no improvement for further treatment Over the counter Muscle rubs like Bifreeze may help with discomfort Clinical Impressions Clinical Impression: Muscle spasm Instructions Patient Instructions: Cyclobenzaprine, DI for Muscle Spasm Discharge ED Provider: Anay Yeboah [facility] [place] HPI General Stated complaint: RT neck pain, no accident Mode of Arrival: Ambulatory Source of Information: Patient Limitations: No Limitations Time Seen by Provider: 10/17/22 13:28 Description of Symptoms (Recalled from Triage Doc. by RN): PATIENT C/O STIFFNESS TO RIGHT SIDE OF NECK HEENT Symptoms (Recalled from RN notes): Yes Resp Symptoms (Recalled from RN notes): No Skin Symptoms (Recalled from RN notes): No MS Symptoms (Recalled from RN notes): No Functional Status (Recalled from RN notes): WNL History of Present Illness Provider Complaint: Patient states he thinks he may have slept wrong States that he has been having spasms and stiffness in the right side of his neck States that he will stretches to help relieve the tension and it helps States that at times he feels the spasms into his shoulder and arm and hurts worse in the muscles in his shoulder area Related Data Previous Rx's Medication Instructions Recorded albuterol sulfate 90 mcg/actuation 1 - 2 puffs inhalation Q6HP PRN 05/13/22 aerosol inhaler Shortness Of Breath #1 ea azithromycin 250 mg tablet 250 mg PO DIRECTED #6 tabs 05/13/22 methylprednisolone 4 mg tablet 4 mg PO DIRECTED #21 tabs 05/13/22 cyclobenzaprine 10 mg tablet 10 mg PO TID PRN muscle spasm #15 10/17/22 tabs ibuprofen 600 mg tablet 600 mg PO Q6HP PRN Moderate Pain 10/17/22 #20 tabs methylprednisolone 4 mg tablets in See Rx Instructions .Route 10/17/22 a dose pack (Medrol (Ehsan)) .COMPLEX 6 days #21 tabs Allergies Allergy/AdvReac Type Severity Reaction Status Date / Time No Known Allergies Allergy Verified 07/19/20 08:18 Worker's Comp Is this a Worker's Comp case?: No [facility] Disclaimer: The information contained in this section may have been updated after the patient was seen, as this information can be updated by other users. Medical History (Updated 09/21
== END 2022-10-17 13:40 | disposition home or self-care (01) ==
PROVIDERS: Emergency Provider Nurse Practitioner; PCP Internal Medicine Adolescent Medicine
DX: M62.838 Other muscle spasm (principal)
CPT/HCPCS: 99212; G0463

== ENCOUNTER 2023-01-19 14:00 | Emergency (ER) | payer BC, SELFPAY ==
[2023-01-19 14:15] VITALS: BP 138/90; PULSE 80; RESP 20; TEMP 37.3; O2SAT 96; BMI 27.3
--- NOTE | 2023-01-19 14:44 | EXP.UTC ---
Discharge Plan Disposition Patient Disposition: Home, Self-Care Condition: Good Prescriptions Prescriptions: New azithromycin [azithromycin] 250 mg tablet 250 mg PO DIRECTED Qty: 6 0RF Rx Instructions: Take two (2) tablets on day #1, then one (1) tablet day #2 thru #5 Referrals Follow up/Referrals: Adis Huitron MD [Primary Care Provider] - See instructions Activity Restrictions/Add. Instructions Additional Instructions/Restrictions: Start antibiotics today be sure to take it as ordered with the full length of time although you should start feeling better in 24-48 hours. Change toothbrush and toothpaste 24-48 hours after starting antibiotics Tylenol or Motrin as needed for fever or pain Encourage fluids, water, Gatorade, Powerade, try cold fluids, popsicles, ice cream will make it feel better You are contagious for 24 hours. Avoid kissing anyone, no eating or drinking after anyone. You are contagious. Follow-up the ER for new or worsening symptoms or no noticeable improvement over the next 24-48 hours. Follow-up with PCP this week if worsening or no improvement Clinical Impressions Clinical Impression: Strep throat Instructions Patient Instructions: DI for Strep Throat Discharge ED Provider: Thai ([facility] [place] HPI General Stated complaint: sore throat, headache Mode of Arrival: Ambulatory Source of Information: Patient Limitations: No Limitations Time Seen by Provider: 01/19/23 14:45 Description of Symptoms (Recalled from Triage Doc. by RN): PATIENT C/O SORE THROAT HEENT Symptoms (Recalled from RN notes): Yes Resp Symptoms (Recalled from RN notes): No Skin Symptoms (Recalled from RN notes): No MS Symptoms (Recalled from RN notes): No Functional Status (Recalled from RN notes): WNL History of Present Illness Provider Complaint: 27 yr old male presents for sore throat. pt states he gets strep freq and this feels like his normal strep Related Data Previous Rx's Medication Instructions Recorded azithromycin 250 mg tablet 250 mg PO DIRECTED #6 tabs 01/19/23 Allergies Allergy/AdvReac Type Severity Reaction Status Date / Time No Known Allergies Allergy Verified 07/19/20 08:18 Worker's Comp Is this a Worker's Comp case?: No [facility] Disclaimer: The information contained in this section may have been updated after the patient was seen, as this information can be updated by other users. Medical History (Reviewed 01/19/23 @ 14:48 by Vincenzo Andre ([facility]), DECISION SUPPORT MANAGER) No significant past medical history Social History (Reviewed 01/19/23 @ 14:48 by Vincenzo Andre ([facility]), DECISION SUPPORT MANAGER) Smoking Status: Never smoker second hand exposure: Yes alcohol intake: never current occupational status: other Travel in the last 8 weeks: None ROS Obtained: Yes All systems reviewed & no additional complaints except as documented Constitutional Constitutional: Reports system reviewed and no additional complaints, except as documented and Reports as per HPI Eyes Eyes: Reports system reviewed and no additional complaints, except as documented and Reports as per HPI ENT Ears, Nose, Mouth, and Throat: Reports system reviewed and no additional complaints, except as documented, Reports as per HPI and Reports sore throat Cardiovascular Cardiovascular: Reports system reviewed and no additional complaints, except as documented Respiratory Respiratory: Reports system reviewed and no additional complaints, except as documented Gastrointestinal Gastrointestingal: Reports system reviewed and no additional complaints, except as documented Integumentary/Breasts Skin/Breast: Reports system reviewed and no additional complaints, except as documented Neurologic Neurologic: Reports system reviewed and no additional complaints, except as documented Endocrine Endocrine: Reports system reviewed and no additional complaints, except as documented Hematologic/Lymphatic Henatologic/Lymphatic: Reports system review
[2023-01-19 14:52] VITALS: BP 138/90; PULSE 80; RESP 20; TEMP 37.3; O2SAT 96
[2023-01-19 14:53] LABS: UTC Strep Screen (Rapid) Negative (Negative)
== END 2023-01-19 14:55 | disposition home or self-care (01) ==
PROVIDERS: Emergency Provider Nurse Practitioner Family; PCP Internal Medicine Adolescent Medicine
DX: J02.9 Acute pharyngitis, unspecified (principal); R51.9 Headache, unspecified
CPT/HCPCS: 87880; 99212; 99214; G0463

== ENCOUNTER 2023-02-27 16:24 | Emergency (ER) | payer BC, SELFPAY ==
--- NOTE | 2023-02-27 16:33 | EXP.UTC ---
Discharge Plan Disposition Patient Disposition: Home, Self-Care Condition: Good Prescriptions Prescriptions: New azithromycin [Zithromax] 250 mg tablet 250 mg PO UD DOSE PK Qty: 6 0RF Rx Instructions: Take two (2) tablets today, then one (1) tablet days #2 thru #5 methylprednisolone 4 mg Tablets,Dose Pack 4 mg PO DIRECTED Qty: 21 0RF ghkpdzkflmqloei-iqkvayvea-MT [Bromfed DM] 2-30-10 mg/5 mL Syrup 5 ml PO Q6H PRN (Reason: Cough) Qty: 240 0RF No Action azithromycin [azithromycin] 250 mg tablet 250 mg PO DIRECTED Qty: 6 0RF Rx Instructions: Take two (2) tablets on day #1, then one (1) tablet day #2 thru #5 Referrals Follow up/Referrals: Adis Huitron MD [Primary Care Provider] - See instructions Activity Restrictions/Add. Instructions Additional Instructions/Restrictions: Drink plenty of fluids. Take tylenol or ibuprofen for pain or fever. Take the medications as directed. Follow up with your regular doctor. GO TO THE ER FOR ANY WORSENING SYMPTOMS Clinical Impressions Clinical Impression: Pharyngitis, Sinusitis Instructions Patient Instructions: Sinusitis, DI for Sinusitis Discharge ED Provider: Scott Batista [place] HPI General Stated complaint: SORE THROAT,COUGH bODY ACHES Time Seen by Provider: 02/27/23 16:33 History of Present Illness Provider Complaint: He states that for the past 2 days he has had sore throat and sinus congestion. He gets strep throat frequently. Related Data Previous Rx's Medication Instructions Recorded azithromycin 250 mg tablet 250 mg PO DIRECTED #6 tabs 01/19/23 azithromycin 250 mg tablet 250 mg PO UD DOSE PK #6 tabs 02/27/23 (Zithromax) rbvupjwccemupty-ohxnrkpwvhsghtt-HR 5 ml PO Q6H PRN Cough #240 mL 02/27/23 2 mg-30 mg-10 mg/5 mL oral syrup (Bromfed DM) methylprednisolone 4 mg tablets in 4 mg PO DIRECTED #21 tabs 02/27/23 a dose pack Allergies Allergy/AdvReac Type Severity Reaction Status Date / Time No Known Allergies Allergy Verified 02/27/23 16:39 [facility] Disclaimer: The information contained in this section may have been updated after the patient was seen, as this information can be updated by other users. Medical History No significant past medical history Social History Smoking Status: Never smoker second hand exposure: Yes alcohol intake: never current occupational status: other Travel in the last 8 weeks: None ROS Obtained: Yes All systems reviewed & no additional complaints except as documented Constitutional Constitutional: Reports chills and Reports fever(s) Eyes Eyes: Denies eye discharge ENT Ears, Nose, Mouth, and Throat: Reports as per HPI Cardiovascular Cardiovascular: Denies chest pain Respiratory Respiratory: Denies chest congestion and Reports cough Gastrointestinal Gastrointestingal: Reports nausea; Denies abdominal pain, constipation, cramping, diarrhea or vomiting Musculoskeletal Musculoskeletal: Denies arthralgias Integumentary/Breasts Skin/Breast: Denies rash Neurologic Neurologic: Denies paresthesias Physical Exam General General appearance: alert and in no apparent distress Head Head exam: atraumatic, normocephalic and normal inspection Eye Eye exam: Present normal appearance, PERRL and EOMI ENT ENT exam: Present mucous membranes moist and normal external ear exam Expanded ENT Exam TM/Canal exam: Bilateral TM: erythema and bulging Nose exam: Absent sinus tenderness Mouth exam: Present normal external inspection; Absent drooling Teeth exam: Present normal inspection Throat exam: Present tonsillar erythema, tonsillomegaly and tonsillar exudate Neck Neck exam: Present normal inspection, full ROM and trachea midline; Absent tenderness, meningismus or lymphadenopathy Chest Chest inspection: Present normal inspection and symmetric chest wall
[2023-02-27 16:36] VITALS: BP 150/87; PULSE 79; RESP 18; TEMP 36.6; O2SAT 97; BMI 27.3
[2023-02-27 16:46] LABS: UTC Strep Screen (Rapid) Negative (Negative)
[2023-02-27 16:55] VITALS: BP 150/87; PULSE 79; RESP 18; TEMP 36.6
== END 2023-02-27 17:26 | disposition home or self-care (01) ==
PROVIDERS: Emergency Provider Nurse Practitioner Family; PCP Internal Medicine Adolescent Medicine
DX: J01.90 Acute sinusitis, unspecified (principal); J02.9 Acute pharyngitis, unspecified
CPT/HCPCS: 87880; 99212; 99214; G0463

== ENCOUNTER 2023-07-03 16:18 | Emergency (ER) | payer BC, SELFPAY ==
[2023-07-03 16:19] VITALS: BP 136/88; PULSE 70; RESP 18; TEMP 36.8; O2SAT 96; BMI 29.9
--- NOTE | 2023-07-03 16:29 | EXP.UTC ---
Discharge Plan Disposition Patient Disposition: Home, Self-Care Condition: Good Prescriptions Prescriptions: New amoxicillin [amoxicillin] 875 mg tablet 875 mg PO Q12H Qty: 20 0RF methylprednisolone 4 mg Tablets,Dose Pack 4 mg PO DIRECTED Qty: 21 0RF pnwvhumgylzsmsh-dfkdohzls-BC [Bromfed DM] 2-30-10 mg/5 mL Syrup 5 ml PO Q6H PRN (Reason: Cough) Qty: 240 0RF Referrals Follow up/Referrals: Adis Huitron MD [Primary Care Provider] - See instructions Activity Restrictions/Add. Instructions Additional Instructions/Restrictions: Drink plenty of fluids. Take tylenol or ibuprofen for pain or fever. Take the medications as directed. Follow up with your regular doctor. GO TO THE ER FOR ANY WORSENING SYMPTOMS Clinical Impressions Clinical Impression: Pharyngitis Instructions Patient Instructions: DI for Pharyngitis/Tonsillopharyngitis -- Child Discharge ED Provider: Scott Batista [facility] General Stated complaint: sore throat, body aches Time Seen by Provider: 07/03/23 16:29 History of Present Illness Provider Complaint: He states that for the past 2 days he has had sore throat and sinus congestion. Related Data Previous Rx's Medication Instructions Recorded amoxicillin 875 mg tablet 875 mg PO Q12H #20 tabs 07/03/23 fashwdjiwoonnpn-fywwmppendqfnso-UU 5 ml PO Q6H PRN Cough #240 mL 07/03/23 2 mg-30 mg-10 mg/5 mL oral syrup (Bromfed DM) methylprednisolone 4 mg tablets in 4 mg PO DIRECTED #21 tabs 07/03/23 a dose pack Allergies Allergy/AdvReac Type Severity Reaction Status Date / Time No Known Allergies Allergy Verified 07/03/23 16:35 [facility] Disclaimer: The information contained in this section may have been updated after the patient was seen, as this information can be updated by other users. Medical History No significant past medical history Social History Smoking Status: Never smoker second hand exposure: Yes alcohol intake: never current occupational status: other Travel in the last 8 weeks: None ROS Obtained: Yes All systems reviewed & no additional complaints except as documented Constitutional Constitutional: Reports chills and Reports fever(s) Eyes Eyes: Denies eye discharge ENT Ears, Nose, Mouth, and Throat: Reports as per HPI Cardiovascular Cardiovascular: Denies chest pain Respiratory Respiratory: Denies chest congestion and Reports cough Gastrointestinal Gastrointestingal: Reports nausea; Denies abdominal pain, constipation, cramping, diarrhea or vomiting Musculoskeletal Musculoskeletal: Denies arthralgias Integumentary/Breasts Skin/Breast: Denies rash Neurologic Neurologic: Denies paresthesias Physical Exam General General appearance: alert and in no apparent distress Head Head exam: atraumatic, normocephalic and normal inspection Eye Eye exam: Present normal appearance, PERRL and EOMI ENT ENT exam: Present mucous membranes moist and normal external ear exam Expanded ENT Exam TM/Canal exam: Bilateral TM: erythema and bulging Nose exam: Absent sinus tenderness Mouth exam: Present normal external inspection; Absent drooling Teeth exam: Present normal inspection Throat exam: Present tonsillar erythema, tonsillomegaly and tonsillar exudate Neck Neck exam: Present normal inspection, full ROM and trachea midline; Absent tenderness, meningismus or lymphadenopathy Chest Chest inspection: Present normal inspection and symmetric chest wall rise; Absent tenderness Respiratory Respiratory exam: Present normal lung sounds bilaterally; Absent respiratory distress, wheezes or stridor Cardiovascular Cardiovascular exam: Present regular rate and normal rhythm; Absent systolic murmur or diastolic murmur Abdominal Exam Abdominal exam: Present soft and normal bowel sounds; Absent distention, tenderness, guarding, rebound or rigidity Ext
[2023-07-03 16:42] LABS: UTC Strep Screen (Rapid) Negative (Negative)
[2023-07-03 16:58] VITALS: BP 136/88; PULSE 70; RESP 18; TEMP 36.8; O2SAT 96
== END 2023-07-03 16:58 | disposition home or self-care (01) ==
PROVIDERS: Emergency Provider Nurse Practitioner Family; PCP Internal Medicine Adolescent Medicine
DX: J02.9 Acute pharyngitis, unspecified (principal); R09.81 Nasal congestion
CPT/HCPCS: 87880; 99212; 99214; G0463

== ENCOUNTER 2023-11-15 13:29 | Emergency (ER) | payer BC, SELFPAY ==
[2023-11-15 13:30] VITALS: BP 137/78; PULSE 57; RESP 18; TEMP 36.7; O2SAT 96; BMI 31.9
--- NOTE | 2023-11-15 13:46 | EXP.UTC ---
Discharge Plan Disposition Patient Disposition: Home, Self-Care Condition: Good Prescriptions Prescriptions: New wiiqjcehbkyfmxf-yyaohxtgn-OJ [Bromfed DM] 2-30-10 mg/5 mL Syrup 5 ml PO Q6H PRN (Reason: Cough) Qty: 240 0RF ondansetron 4 mg Tablet,Disintegrating 4 mg PO Q8H PRN (Reason: Nausea) Qty: 12 0RF No Action mirtazapine 15 mg tablet 15 mg PO DAILY Referrals Follow up/Referrals: Adis Huitron MD [Primary Care Provider] - See instructions Activity Restrictions/Add. Instructions Additional Instructions/Restrictions: Drink plenty of fluids. Take tylenol or ibuprofen for pain or fever. Take the medications as directed. Follow up with your regular doctor. GO TO THE ER FOR ANY WORSENING SYMPTOMS Clinical Impressions Clinical Impression: Acute viral syndrome Stand Alone Forms Stand Alone Forms: Work/School Release Instructions Patient Instructions: DI for Viral Syndrome Discharge ED Provider: Scott Batista [facility] General Stated complaint: body aches, congestion, nausea, diarrea Mode of Arrival: Ambulatory Source of Information: Patient Limitations: No Limitations Time Seen by Provider: 11/15/23 13:46 Description of Symptoms (Recalled from Triage Doc. by RN): Pts symptoms diarrhea, body aches, hot and cold flashes. HEENT Symptoms (Recalled from RN notes): Yes Resp Symptoms (Recalled from RN notes): No Skin Symptoms (Recalled from RN notes): No MS Symptoms (Recalled from RN notes): No Functional Status (Recalled from RN notes): n/a History of Present Illness Provider Complaint: He states that for the past 2 days he has had body aches, chills, fever, and malaise. Related Data Home Medications Medication Instructions Recorded Confirmed mirtazapine 15 mg tablet 15 mg PO DAILY 08/13/23 11/15/23 Previous Rx's Medication Instructions Recorded jgsvglsylmcwmai-ibikowsvgamjcyt-JL 5 ml PO Q6H PRN Cough #240 mL 11/15/23 2 mg-30 mg-10 mg/5 mL oral syrup (Bromfed DM) ondansetron 4 mg disintegrating 4 mg PO Q8H PRN Nausea #12 tabs 11/15/23 tablet Allergies Allergy/AdvReac Type Severity Reaction Status Date / Time No Known Allergies Allergy Verified 08/13/23 16:11 Worker's Comp Is this a Worker's Comp case?: No [facility] Disclaimer: The information contained in this section may have been updated after the patient was seen, as this information can be updated by other users. Medical History No significant past medical history Recurrent streptococcal tonsillitis Social History Smoking Status: Never smoker second hand exposure: Yes alcohol intake: never current occupational status: other Travel in the last 8 weeks: None ROS Obtained: Yes All systems reviewed & no additional complaints except as documented Constitutional Constitutional: Reports chills and Reports fever(s) Eyes Eyes: Denies eye discharge ENT Ears, Nose, Mouth, and Throat: Reports as per HPI Cardiovascular Cardiovascular: Denies chest pain Respiratory Respiratory: Denies chest congestion and Reports cough Gastrointestinal Gastrointestingal: Reports nausea; Denies abdominal pain, constipation, cramping, diarrhea or vomiting Musculoskeletal Musculoskeletal: Denies arthralgias Integumentary/Breasts Skin/Breast: Denies rash Neurologic Neurologic: Denies paresthesias Physical Exam General General appearance: alert and in no apparent distress Head Head exam: atraumatic, normocephalic and normal inspection Eye Eye exam: Present normal appearance, PERRL and EOMI ENT ENT exam: Present normal exam, normal oropharynx, mucous membranes moist, TM's normal bilaterally and normal external ear exam Neck Neck exam: Present normal inspection, full ROM and trachea midline; Absent meningismus or lymphadenopathy Chest Chest inspection: Present normal inspection and symmetric chest wall rise; Absent tenderness Respiratory Respiratory exam: Present normal lung sounds bilaterally; Absent respiratory distress Cardiovascular Cardiovascular exam: Present regular rate and normal rhythm; Absent JVD Abdominal Exam Abdominal exam: Present soft and normal bowel sounds; Absent distention, tenderness or guarding Extremities Exam Extremities exam: Present normal inspection, full ROM and normal capillary refill; Absent calf tenderness Back Exam Back exam: Present normal inspection; Absent tenderness Neurological Exam Neurological exam: Present alert and oriented X3 Psychiatric Psychiatric exam: Present normal affect and normal mood Skin Skin exam: Present warm, dry, intact and normal color Lymphatic Lymphatic Findings: no adenopathy Medical Decision Making Medical Records Medical records reviewed: No I reviewed the patient's medical records. Edwin Inquiry Pt receiving controlled substance: No Vital Signs: 11/15/23 13:30 Temperature 98.1 F Temperature Source Oral Pulse Rate [Right Radial] 57 L Respiratory Rate 18 Blood Pressure [Right Arm] 137/78 Blood Pressure Mean [Right Arm] 97 Blood Pressure Source [Right Arm] Automatic Cuff Blood Pressure Position [Right Arm] Sitting 02 Sat by Pulse Oximetry 96 Oxygen Delivery Method Room Air Lab Data Lab results reviewed: Yes I reviewed the patient's lab results.
[2023-11-15 14:05] LABS: UTC Influenza A Antigen Negative (Negative); UTC Influenza B Antigen Negative (Negative)
[2023-11-15 14:10] LABS: Coronavirus 19, PCR Not Detected (NotDetected); Influenza A, PCR Not Detected (NotDetected); Influenza B, PCR Not Detected (NotDetected)
[2023-11-15 14:17] VITALS: BP 137/78; PULSE 57; RESP 18; TEMP 36.7; O2SAT 96
== END 2023-11-15 14:17 | disposition home or self-care (01) ==
PROVIDERS: Emergency Provider Nurse Practitioner Family; PCP Internal Medicine Adolescent Medicine
DX: R05.9 Cough, unspecified (principal); R50.9 Fever, unspecified; R11.0 Nausea; R53.81 Other malaise; M79.18 Myalgia, other site; B34.9 Viral infection, unspecified
CPT/HCPCS: 87636; 87804; 99212; 99214; G0463

== ENCOUNTER 2024-06-26 12:36 | Emergency (ER) | payer BC, SELFPAY ==
[2024-06-26 12:53] LABS: UTC Strep Screen (Rapid) Negative (Negative)
[2024-06-26 12:55] VITALS: BP 138/100; PULSE 76; RESP 18; TEMP 36.7; O2SAT 96; BMI 29.7
--- NOTE | 2024-06-26 13:17 | EXP.UTC ---
Discharge Plan Disposition Patient Disposition: Home, Self-Care Condition: Good Prescriptions Prescriptions: New azithromycin [Zithromax] 250 mg tablet 250 mg PO UD DOSE PK Qty: 6 0RF Rx Instructions: Take two (2) tablets today, then one (1) tablet days #2 thru #5 polymyxin B sulf-trimethoprim 10,000 unit- 1 mg/mL drops 1 drp Eye-Both Q3H 7 Days Qty: 10 0RF Rx Instructions: while awake; do not exceed 6 doses in 24 hours methylprednisolone 4 mg Tablets,Dose Pack 4 mg PO DIRECTED 6 Days Qty: 21 0RF Rx Instructions: Take 1 pack as directed for 6 days No Action mirtazapine 15 mg tablet 15 mg PO DAILY pzizpdtckjrvjej-yvghbmaow-AY [Bromfed DM] 2-30-10 mg/5 mL Syrup 5 ml PO Q6H PRN (Reason: Cough) Qty: 240 0RF ondansetron 4 mg Tablet,Disintegrating 4 mg PO Q8H PRN (Reason: Nausea) Qty: 12 0RF Referrals Follow up/Referrals: Adis Huitron MD [Primary Care Provider] - See instructions Activity Restrictions/Add. Instructions Additional Instructions/Restrictions: Drink plenty of fluids. Take tylenol or ibuprofen for pain or fever. Take the medications as directed. Use the eye drops as directed. Follow up with your regular doctor. GO TO THE ER FOR ANY WORSENING SYMPTOMS Clinical Impressions Clinical Impression: Pharyngitis, Conjunctivitis Instructions Patient Instructions: How to Instill Eye Drops Print Language Print Language: Swedish Discharge ED Provider: Scott Batista [facility] General Stated complaint: sore throat Mode of Arrival: Ambulatory Source of Information: Patient Limitations: No Limitations Time Seen by Provider: 06/26/24 13:17 Description of Symptoms (Recalled from Triage Doc. by RN): Patient reports sore throat and eye irritation. HEENT Symptoms (Recalled from RN notes): Yes Resp Symptoms (Recalled from RN notes): No Skin Symptoms (Recalled from RN notes): No MS Symptoms (Recalled from RN notes): No Functional Status (Recalled from RN notes): wnl Related Data Home Medications ?Medication ?Instructions ?Recorded ?Confirmed mirtazapine 15 mg tablet 15 mg PO DAILY 08/13/23 11/15/23 Previous Rx's ?Medication ?Instructions ?Recorded sgttbmygjoqfmkj-ivjuzoqiuvjosxp-XL 5 ml PO Q6H PRN Cough #240 mL 11/15/23 2 mg-30 mg-10 mg/5 mL oral syrup (Bromfed DM) ondansetron 4 mg disintegrating 4 mg PO Q8H PRN Nausea #12 tabs 11/15/23 tablet azithromycin 250 mg tablet 250 mg PO UD DOSE PK #6 tabs 06/26/24 (Zithromax) methylprednisolone 4 mg tablets in 4 mg PO DIRECTED 6 days #21 tabs 06/26/24 a dose pack polymyxin B sulfate 10,000 1 drp Eye-Both Q3H 7 days #10 mL 06/26/24 unit-trimethoprim 1 mg/mL eye drops Allergies Allergy/AdvReac Type Severity Reaction Status Date / Time No Known Allergies Allergy Verified 08/13/23 16:11 Worker's Comp Is this a Worker's Comp case?: No [facility] Disclaimer: The information contained in this section may have been updated after the patient was seen, as this information can be updated by other users. Medical History No significant past medical history Recurrent streptococcal tonsillitis Social History Smoking Status: Never smoker second hand exposure: Yes alcohol intake: never current occupational status: other Travel in the last 8 weeks: None ROS Obtained: Yes All systems reviewed & no additional complaints except as documented Constitutional Constitutional: Reports chills and Reports fever(s) Eyes Eyes: Denies change in vision and Reports eye discharge ENT Ears, Nose, Mouth, and Throat: Reports as per HPI Cardiovascular Cardiovascular: Denies chest pain Respiratory Respiratory: Denies chest congestion and Reports cough Gastrointestinal Gastrointestingal: Reports nausea; Denies abdominal pain, constipation, cramping, diarrhea or vomiting Musculoskeletal Musculoskeletal: Denies arthralgias Integumentary/Breasts Skin/Breast: Denies rash Neurologic Neurologic: Denies paresthesias Physical Exam General General appearance: alert and in no apparent distress Head Head exam: atraumatic, normocephalic and normal inspection Eye Eye exam: Present PERRL, EOMI, conjunctival redness, conjunctival injection and discharge Expanded Eye Exam Eyelids: bilateral: erythema Pupils: Left: size (2), Right: size (2) and Bilateral: regular, round and reactive Sclera/Conjunctival: bilateral: injection and exudate ENT ENT exam: Present mucous membranes moist and normal external ear exam Expanded ENT Exam TM/Canal exam: Bilateral TM: erythema and bulging Nose exam: Absent sinus tenderness Mouth exam: Present normal external inspection; Absent drooling Teeth exam: Present normal inspection Throat exam: Present tonsillar erythema, tonsillomegaly and tonsillar exudate Neck Neck exam: Present normal inspection, full ROM and trachea midline; Absent tenderness, meningismus or lymphadenopathy Chest Chest inspection: Present normal inspection and symmetric chest wall rise; Absent tenderness Respiratory Respiratory exam: Present normal lung sounds bilaterally; Absent respiratory distress, wheezes, stridor or accessory muscle use Cardiovascular Cardiovascular exam: Present regular rate and normal rhythm; Absent systolic murmur or diastolic murmur Abdominal Exam Abdominal exam: Present soft and normal bowel sounds; Absent distention, tenderness, guarding, rebound or rigidity Extremities Exam Extremities exam: Present normal inspection and normal capillary refill; Absent calf tenderness Back Exam Back exam: Present normal inspection and full ROM; Absent tenderness, CVA tenderness (R) or CVA tenderness (L) Neurological Exam Neurological exam: Present alert, oriented X3 and CN II-XII intact Psychiatric Psychiatric exam: Present normal affect and normal mood Skin Skin exam: Present warm, dry, intact and normal color Medical Decision Making Medical Records Medical records reviewed: No I reviewed the patient's medical records. Edwin Inquiry Pt receiving controlled substance: No Vital Signs: 06/26/24 12:55 Temperature 98.1 F Temperature Source Oral Pulse Rate [Radial] 76 Respiratory Rate 18 Blood Pressure [Right Arm] 138/100 H Blood Pressure Mean [Right Arm] 112 Blood Pressure Source [Right Arm] Automatic Cuff Blood Pressure Position [Right Arm] Sitting 02 Sat by Pulse Oximetry 96 Oxygen Delivery Method Room Air Lab Data Lab results reviewed: Yes I reviewed the patient's lab results. Lab Results 06/26/24 12:45: Strep Scn Rapid Clinic Negative Orders (Tests/Meds): ORDERS Category Date Time Status Strep Screen Confirmation Stat Micro 06/26/24 12:45 Received
[2024-06-26 13:45] VITALS: BP 138/100; PULSE 76; RESP 18; TEMP 36.7; O2SAT 96
== END 2024-06-26 13:46 | disposition home or self-care (01) ==
PROVIDERS: Emergency Provider Nurse Practitioner Family; PCP Internal Medicine Adolescent Medicine
DX: J02.9 Acute pharyngitis, unspecified (principal); H10.33 Unspecified acute conjunctivitis, bilateral
CPT/HCPCS: 87880; 99212; 99214; G0463